=== PATIENT | female | born 1970 | race Caucasian/White ===

== ENCOUNTER 2025-07-19 15:14 | Outpatient (CLI) | payer BC | END 2025-07-19 15:15 | disposition home or self-care (01) | LOC: CSHDTY/OP 15:14 | PROVIDERS: ATTEND Surgery | DX: Z71.3 Dietary counseling and surveillance (principal); E66.01 Morbid (severe) obesity due to excess calories | CPT/HCPCS: 97802 ==

== ENCOUNTER 2025-08-06 08:47 | Outpatient (CLI) | payer BC | END 2025-08-06 08:48 | disposition home or self-care (01) | LOC: CSHSLEEP 08:47 | PROVIDERS: ATTEND Internal Medicine | DX: G47.33 Obstructive sleep apnea (adult) (pediatric) (principal); F32.A Depression, unspecified; E66.9 Obesity, unspecified; Z68.42 Body mass index [BMI] 45.0-49.9, adult; I10 Essential (primary) hypertension; G47.61 Periodic limb movement disorder | CPT/HCPCS: 95811 ==